=== PATIENT | male | born 1985 | race Caucasian/White ===

== ENCOUNTER 2023-08-05 19:21 | Emergency (ER) | payer SELFPAY ==
[2023-08-05 19:24] VITALS: BP 129/85; PULSE 71; RESP 16; TEMP 36.8; O2SAT 100
[2023-08-05] MEDS: DACRIOSE EYE IRRIGATION 118 ML BOTTLE 10 ML EACH EYE (19:45)
[2023-08-05] MEDS: FLUORESCEIN SOD 1 MG/STRIP EACH EYE (19:45)
[2023-08-05] MEDS: TETRACAINE HCL 0.5% OPHTH SOLN 4 ML BTL 1 DROP EACH EYE (19:45)
--- NOTE | 2023-08-05 19:50 | ED.EYEPROB ---
HPI - Eye Problem General Chief complaint: Eye Problems Stated complaint: eye drainage Time Seen by Provider: 08/05/23 19:33 Source: patient Mode of arrival: ambulatory History of Present Illness HPI Narrative: Patient is a 38-year-old male with no significant past medical history that presents today with eye problems. His left thigh is erythematous and very itchy and has crusted green due coming out of it. 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 It is only his left eye currently. chief complaint: eye pain and eye redness Onset (ago): hour(s) Onset description: sudden Duration: constant Location: left eye Eye Symptoms: redness, itching and discharge Place: home Mechanism: none Associated symptoms: none Treatments Prior to Arrival: none Related Data Allergies Allergy/AdvReac Type Severity Reaction Status Date / Time No Known Allergies Allergy Verified 08/05/23 19:35 Review of Systems Review of Systems: All systems reviewed & are unremarkable except as noted in HPI and below Constitutional: Constitutional: Reports no additional constitutional complaints Eyes: Eyes: Reports as per HPI ENT: Reports system reviewed and no additional complaints, except as documented Cardiovascular: Cardiovascular: Reports no additional cardiovascular complaints Respiratory: Respiratory: Reports no additional respiratory complaints Gastrointestinal: Gastrointestinal: Reports no additional gastrointestinal complaints Genitourinary: Genitourinary: Reports no additional male genitourinary complaints Musculoskeletal: Musculoskeletal: Reports no additional musculoskeletal complaints Integumentary/Breasts: Skin/Breast: Reports system reviewed and no additional complaints, except as docu Neurologic: Reports system reviewed and no additional complaints, except as documented Psychiatric: Psychiatric: Reports no additional psychiatric complaints Endocrine: Endocrine: Reports no additional endocrine complaints Exam Const: General: healthy appearing and no acute distress Nutritional Appearance: well nourished Orientation/consciousness: patient oriented x3 HENMT: Head: normal to inspection Ears: external ears normal Other: Conjunctivitis left eye Eyes: Pupils: Equal, round and reactive pupils present EOM: EOMs intact bilaterally Other: conjunctivitis left eye Neck: Neck: normal visual inspection Chest: Chest palpation & inspection: normal inspection of the chest Resp: Effort & Inspection: normal respiratory effort Auscultation: clear to auscultation bilaterally Cardio: Rate: regular rate Rhythm: regular rhythm GI: GI Palp: Yes Soft to palpation Skin: General skin exam: normal color Rashes: no rashes Wounds: no wounds Neuro: General: patient oriented x3 Cranial nerves: Yes Nystagmus not present Speech: normal speech Extrem: General: normal to inspection Course Vital Signs Vital signs: Vital Signs Temperature 98.3 F 08/05/23 19:24 Pulse Rate 71 08/05/23 19:24 Respiratory Rate 16 08/05/23 19:24 Blood Pressure 129/85 08/05/23 19:24 Pulse Oximetry 100 08/05/23 19:24 Oxygen Delivery Room Air 08/05/23 19:24 Temperature 98.3 F 08/05/23 19:24 Pulse Rate 71 08/05/23 19:24 Respiratory Rate 16 08/05/23 19:24 Blood Pressure 129/85 08/05/23 19:24 Pulse Oximetry 100 08/05/23 19:24 Oxygen Delivery Room Air 08/05/23 19:24 Procedures FB Removal Eye Foreign Body #1: Foreign Body Removal Date: 08/05/23 Foreign Body Removal Time: 19:54 Time Out performed: No Location: eye (L) Topical anesthetic used: tetracaine Foreign body: wood Evidence of corneal penetration: No Technique: irrigation Procedure performed under: direct visualization with magnification Post-procedure medication: ophthalmic antibiotic Patient tolerated procedure: well and no
[2023-08-05] MEDS: POLYMYXIN/TRIMETHOPRIM OPHTH 10 ML DROPS 1 DROP EACH EYE (20:17)
== END 2023-08-05 20:18 | disposition home or self-care (01) ==
LOC: CHSED 20:04
PROVIDERS: Emergency Provider Family Medicine; PCP Physician Assistant
DX: H10.89 Other conjunctivitis (principal)
CPT/HCPCS: 99283; A9270